=== PATIENT | female | born 1950 | race Caucasian/White ===

== ENCOUNTER 2021-11-25 10:38 | Emergency (ER) | payer MEDICARE, MEDICAID, SELFPAY ==
--- NOTE | ~2021-11-25 | CT_ITS ---
EXAMINATION: CT abdomen pelvis w con DATE: 11/25/2021 12:03 INDICATION: Right lower quadrant abdominal pain. TECHNIQUE: Computed tomography (CT) of the abdomen and pelvis was performed with 100 mL Omnipaque-350 intravenous contrast. Automated exposure control and iterative reconstruction technique were employe d. The dose-length product was 285.57 mGy-cm. COMPARISON: None FINDINGS: Mild bronchiectasis and mild dependent atelectasis in the bilateral lower lobes. Heart size is normal . Atherosclerotic coronary artery calcific location. No pericardial or pleural effusion. Small slidin g-type hiatal hernia. Mild dilation of the common bile duct which measures up to 10 mm in diameter bu t without intrahepatic biliary ductal dilation likely related to prior cholecystectomy with surgical clips at the gallbladder fossa. There are couple gas and fluid-filled duodenal diverticula along the head of the pancreas, the first measuring 2.9 x 3.3 cm resulting from the second portion of the duode num and a second measuring 2.8 x 1.7 cm arising from the third portion of the duodenum. Pancreas, spl een and bilateral adrenal glands are normal. 9.2 cm cyst arising from the lower pole of the right kid nico. There is urothelial enhancement along the bilateral ureters and urinary tract infections. Bladde r is normal. Small fat-containing right inguinal hernia. There is moderate colonic diverticulosis wit h a sigmoid predominance. There is no adjacent inflammatory change to suggest diverticulitis. No hazel wel obstruction. The appendix is not visualized. No pericecal inflammatory change to suggest acute ap pendicitis. Small fat-containing umbilical hernia. The uterus is not identified and has likely been s urgically resected. No free intraperitoneal gas or fluid. No pathologically enlarged abdominal or pel wanda lymphadenopathy. There is calcified atherosclerosis of the aorta and bilateral iliac arteries. Th oracolumbar dextroscoliosis with severe spondylosis. IMPRESSION: 1. Urothelial enhancement at the bilateral renal pelvises sees and ureters resulting concern for asce nding urinary tract infection. Correlate with urinalysis. 2. Small fat-containing umbilical and right inguinal hernias. 3. Moderate sigmoid diverticulosis. Reviewed, dictated and finalized at location [facility]. IMPRESSION: 1. Urothelial enhancement at the bilateral renal pelvises sees and ureters resu lting concern for ascending urinary tract infection. Correlate with urinalysis. 2. Small fat-containing umbilical and right inguinal hernias. 3. Moderate sigmoid diverticulosis.
[2021-11-25 10:42] VITALS: BP 149/67; PULSE 91; RESP 16; TEMP 36.7; O2SAT 99
[2021-11-25 10:57] LABS: Basophils Percent Auto 0.3 % (0.2-1.2); Eosinophils Absolute Auto 0.1 K/mm3 (0-0.3); Eosinophils Percent Auto 1.3 % (0-4.4); Hematocrit 43.6 % (37.0-47.0); Hemoglobin 14.3 g/dL (12.0-15.0); Immature Granulocyte Absolute 0.02 K/mm3 (0.00-0.031); Immature Granulocyte Percent A 0.3 % (0-0.5); Lymphocytes Absolute Auto 1.37 K/mm3 (0.9-3.2); Lymphocytes Percent Auto 19.6 % (18.3-44.2); Mean Corpuscular HGB Conc 32.8 g/dl (32-36); Mean Corpuscular Hemoglobin 30.2 pg (26-34); Mean Platelet Volume 10.6 fl (7.4-10.4); Monocytes Absolute Auto 0.5 K/mm3 (0.1-0.6); Monocytes Percent Auto 7.6 % (2.6-8.5); Neutrophils Percent Auto 70.9 % (45.5-73.1); Platelet Count Result 200 k/mm3 (150-375); Red Blood Count 4.74 M/mm3 (4.2-5.4)
[2021-11-25 11:08] LABS: Alanine Aminotransferase 15 U/L (4-35); Albumin Level 4.6 g/dL (3.5-5.1); Alkaline Phosphatase 95 U/L (38-126); Anion Gap 8 mmol/L (8-16); Aspartate Amino Transferase 24 U/L (14-36); Bilirubin,Total 0.9 mg/dL (0.2-1.3); Blood Urea Nitrogen 20 mg/dL (7-17); Calcium 9.4 mg/dL (8.4-10.2); Carbon Dioxide 28 mmol/L (22-30); Chloride 102 mmol/L (98-107); Estimated CRCL calculation 33 ml/min; Estimated Glomerular Filt Rate 45; Glucose 139 mg/dL (65-110); Lipase 147 U/L (23-300); Potassium 3.8 mmol/L (3.4-5.0); Sodium 138 mmol/L (137-145)
[2021-11-25 11:16] LABS: Add Urine Microscopic? YES; Appearance Urine Cloudy (Clear); Bacteria Urine Trace /hpf; Bilirubin Urine Negative (Negative); Blood Urine 3+ (Negative); Color Urine Yellow (Yellow); Glucose Urine UA 3+ mg/dL (Negative); Ketones Urine Trace mg/dL (Negative); Leukocyte Esterase Ur 3+ LEU/UL (Negative); Mucus Urine Rare /lpf; Nitrate Urine Negative (Negative); Protein Urine 2+ mg/dL (Negative); RBC Urine >75 /hpf (0-2); Specific Grav Ur 1.021 (1.001-1.035); Squamous Epithelial Cell Urine Rare /hpf (Few); Urobilinogen Urine Negative mg/dL (<2.0); WBC Urine >75 /hpf
[2021-11-25 11:22] VITALS: BP 147/60; PULSE 84; RESP 18
[2021-11-25] MEDS: MORPHINE SULFATE (*CRX) 4 MG/ML INJ IV PUSH (12:08)
--- NOTE | 2021-11-25 12:47 | ED.FEMALEGU ---
HPI - Female Genitourinary General Chief complaint: Urogenital-Female Stated complaint: rectal bleeding Time Seen by Provider: 11/25/21 11:12 History of Present Illness HPI Narrative: Patient is a 71-year-old female who presents ER with urinary issues. Patient reports she had some more cramping in her abdomen yesterday and then had bright red urine. Had the appearance made her juice. Since then she has been having urinary frequency and dysuria. She has some cramping pain that goes into her back. No fevers or chills or sweats. No nausea or vomiting. Related Data Allergies Allergy/AdvReac Type Severity Reaction Status Date / Time acetaminophen [From [place]] Allergy Anaphylaxis Verified 11/25/21 12:10 hydrocodone [From [place]] Allergy Anaphylaxis Verified 11/25/21 12:10 Review of Systems Review of Systems: All systems reviewed & are unremarkable except as noted in HPI and below Constitutional: Constitutional: Denies chills and Denies fatigue Cardiovascular: Cardiovascular: Denies chest pain, Denies rapid heart rate and Denies radiating jaw, neck or arm pain Respiratory: Respiratory: Denies cough and Denies dyspnea Gastrointestinal: Gastrointestinal: Reports abdominal pain, Denies diarrhea, Denies nausea and Denies vomiting Genitourinary: Genitourinary: Denies abnormal vaginal bleeding, Reports hematuria, Reports nocturia, Reports dysuria, Reports flank pain and Denies urinary incontinence Neurologic: Denies headache(s), Denies focal weakness and Denies numbness PMFSH Past Medical History Medical History (Updated 11/25/21 @ 12:54 by Baldo Carednas MD) Depression Hyperlipidemia Surgical History Surgical History (Updated 11/25/21 @ 12:49 by Baldo Cardenas MD) History of hysterectomy Social History Social History (Updated 11/25/21 @ 12:49 by Baldo Cardenas MD) Smoking status: Never smoker Exam Narrative: GENERAL: Well-appearing, well-nourished, and in no acute distress. HEAD: Normocephalic, atraumatic. ENT: Mucous membranes moist. CHEST: Clear to auscultation. No respiratory distress. HEART: Regular rate and rhythm. Normal peripheral pulses. ABDOMEN: Soft, tender palpation right lower quadrant with guarding, nondistended. Bilateral CVA tenderness. EXTREMITIES: Normal range of motion. No edema. SKIN: Warm, dry, no rash. NEURO: Alert and oriented x3. PSYCH: Normal mood and affect. Course Course Emergency Course: Patient resting comfortably. Informed of results. Given ceftriaxone for infection. Discharge home with antibiotics and pain/nausea control. Discussed return precautions and patient verbalized understanding. Vital Signs Vital signs: Vital Signs Temperature 98.0 F 11/25/21 10:42 Pulse Rate 91 11/25/21 10:42 Respiratory Rate 16 11/25/21 10:42 Blood Pressure 149/67 H 11/25/21 10:42 Pulse Oximetry 99 11/25/21 10:42 Temperature 98.0 F 11/25/21 10:42 Pulse Rate 84 11/25/21 11:22 Respiratory Rate 18 11/25/21 11:22 Blood Pressure 147/60 H 11/25/21 11:22 Pulse Oximetry 99 11/25/21 10:42 MDM - Female Genitourinary Lab Data Result diagrams: 11/25/21 10:51 11/25/21 10:51 Labs: Lab Results 11/25/21 11/25/21 11/25/21 Range/Units 10:51 10:51 10:59 WBC 7.0 (4.5-10.0) K/mm3 RBC 4.74 (4.2-5.4) M/mm3 Hgb 14.3 (12.0-15.0) g/dL Hct 43.6 (37.0-47.0) % MCV 92.0 (80-100) fl MCH 30.2 (26-34) pg MCHC 32.8 (32-36) g/dl RDW 13.0 (11.5-14.5) % Plt Count 200 (150-375) k/mm3 MPV 10.6 H (7.4-10.4) fl Immature Gran % (Auto) 0.3 (0-0.5) % Neut % (Auto) 70.9 (45.5-73.1) % Lymph % (Auto) 19.6 (18.3-44.2) % Burke % (Auto) 7.6 (2.6-8.5) % Eos % (Auto) 1.3 (0-4.4) % Baso % (Auto) 0.3 (0.2-1.2) % Lymph # (Auto) 1.37 (0.9-3.2) K/mm3 Burke # (Auto) 0.5 (0.1-0.6) K/mm3 Eos # (Auto) 0.1 (0-0.3) K/mm3 Baso # (Auto) 0.0 (0.0-0.1) K/mm3 Abs Imm
[2021-11-25 13:29] VITALS: BP 115/63; PULSE 76; RESP 16; O2SAT 98
== END 2021-11-25 13:34 | disposition home or self-care (01) ==
PROVIDERS: Emergency Provider Emergency Medicine
DX: N12 Tubulo-interstitial nephritis, not specified as acute or chronic (principal); E78.5 Hyperlipidemia, unspecified; K57.90 Diverticulosis of intestine, part unspecified, without perforation or abscess without bleeding
CPT/HCPCS: 36415; 51701; 74177; 80053; 81001; 83690; 85025; 87077; 87086; 87088; 87186; 96365; 96375; 99284; J0696; J2270; Q9967

== ENCOUNTER 2021-11-29 18:02 | Emergency (ER) | payer MEDICARE, MEDICAID, SELFPAY ==
--- NOTE | ~2021-11-29 | CT_ITS ---
EXAMINATION: CT brain wo con DATE: 11/29/2021 20:06 INDICATION: Confusion. Urinary tract infection. TECHNIQUE: Computed tomography (CT) of the head was performed without intravenous contrast. The mA wa s adjusted according to patient size. Iterative reconstruction technique was employed. Exam dose: 60 5.33 mGy-cm total exam DLP. COMPARISON: None FINDINGS: Bilateral carotid siphon internal carotid artery calcifications, vertebral and basilar ziyad ry calcification. Is nonspecific diminished attenuation cerebral white matter, likely due to chronic small vessel ischemic changes. No intracranial mass lesion or hemorrhage or cerebrovascular accident is detected. No midline shift o r mass effect. Normal ventricular size. No subdural or epidural hematoma. No orbital mass lesion. There is patchy soft tissue thickening of some ethmoid air cells bilaterally. The included paranasal sinuses are otherwise unremarkable. Normal development and aeration of the mastoid air cells. No fracture or bone destruction of the cranial vault. IMPRESSION: Cerebral atherosclerosis and chronic small vessel ischemic changes of the cerebral white matter No acute intracranial finding Reviewed, dictated and finalized at [facility]. Reviewed, dictated and finalized at location [facility].
--- NOTE | ~2021-11-29 | CT_ITS ---
EXAMINATION: CT abdomen pelvis wo con DATE: 11/29/2021 20:06 INDICATION: Increasing abdominal pain. Urinary tract infection. Hematuria. TECHNIQUE: Computed tomography (CT) of the abdomen and pelvis was performed without intravenous contr ast. Automated exposure control and iterative reconstruction technique were employed. Exam dose: 284 .89 mGy-cm total exam DLP. COMPARISON: 11/25/2021 CT abdomen pelvis with IV contrast material FINDINGS: The lung bases are clear. Normal heart size. Coronary artery calcifications. No pericardial or pleural effusion. Small sliding hiatal hernia. Status post cholecystectomy. No hepatic, splenic, pancreatic, adrenal or left renal space occupying m ass lesion. There is a 9 cm cyst of the right kidney. No urinary tract calculus or hydroureteronephrosis is detected. The urinary bladder is relatively madelyn cuated, unremarkable. Status post hysterectomy. Diverticulosis of the sigmoid colon; no CT evidence of diverticulitis. No bowel obstruction, bowel wa ll thickening, pneumatosis or intraperitoneal free air. There is extensive calcification of the abdominal aorta but no aneurysm. There is calcification of ao rtic branches including iliac arteries as well as bilateral femoral artery calcification. No intraperitoneal or retroperitoneal or pelvic mass lesion or adenopathy or ascites. Small fat-containing umbilical hernia. Fat-containing right inguinal hernia. Osteopenia. Degenerative changes of the thoracic and lumbar spine, including severe degenerative disc disease and associated mild retrolisthesis at L2-3, moderate degenerative disc disease and minimal r etrolisthesis at L4-5. IMPRESSION: Status post cholecystectomy Status post hysterectomy Diverticulosis of sigmoid colon; no evidence of diverticulitis Small sliding hiatal hernia Reviewed, dictated and finalized at [facility]. Reviewed, dictated and finalized at [facility].
[2021-11-29 18:24] VITALS: BP 118/63; PULSE 73; RESP 18; TEMP 36.6; O2SAT 97
--- NOTE | 2021-11-29 19:56 | ED.GENADULT ---
HPI - General Adult General Chief complaint: Unspecified Stated complaint: dizzy, confused, dx with UTI yesterday Time Seen by Provider: 11/29/21 19:43 Source: patient, RN notes reviewed and old records reviewed Limitations: no limitations History of Present Illness HPI narrative: 71-year-old female with a current UTI and type 2 diabetes presented to the emergency department for evaluation of increased fatigue. Patient states that she was recently diagnosed with a urinary tract infection and was started on antibiotics. EMR reflects patient was started on Cipro. Patient states she has been taking this medication as directed. Patient initial symptoms began 11/24 which consisted of suprapubic abdominal pain and hematuria. Patient states that since her initial visit that the hematuria had begun to improve. Patient states over the last 2 days she has had increasing fatigue. Patient states she was sleeping excessively today and felt like her head was in a fog. Patient denies any associated chest pain or shortness of breath. While patient states she is dizzy she denies any falls or injuries. Patient denies any focal numbness or weakness. Related Data Allergies Allergy/AdvReac Type Severity Reaction Status Date / Time acetaminophen [From [place]] Allergy Anaphylaxis Verified 11/29/21 22:02 hydrocodone [From [place]] Allergy Anaphylaxis Verified 11/29/21 22:02 Review of Systems Review of Systems: CONSTITUTIONAL: Generalized weakness and fatigue EYES: Denies visual changes, redness, or discharge. ENT: Denies rhinorrhea, congestion, sore throat, or otalgia. CARDIOVASCULAR: Denies chest pain, palpitations, or edema. RESPIRATORY: Denies cough or dyspnea. GASTROINTESTINAL: Suprapubic abdominal pain GENITOURINARY: Denies dysuria or hematuria. SKIN: Denies rash or itching. MUSCULOSKELETAL: Denies back pain, joint pain, or myalgia. NEUROLOGIC: Denies headache, numbness, or weakness. PMFSH Past Medical History Medical History (Updated 11/29/21 @ 22:58 by Zack Gonsalves MD) Depression Hyperlipidemia Surgical History Surgical History (Updated 11/25/21 @ 12:49 by Baldo Cardenas MD) History of hysterectomy Social History Social History (Updated 11/25/21 @ 12:49 by Baldo Cardenas MD) Smoking status: Never smoker Exam Narrative: APPEARANCE: Well appearing, no pain, no distress, well-nourished. HEAD: normocephalic, atraumatic. EYES: PERRLA/EOMI, conjunctivae clear. NOSE: Normal no drainage NECK: Supple. No adenopathy, no masses. RESPIRATORY: Airway patent, respirations nonlabored. Clear to auscultation bilaterally, no rales, rhonchi, wheezing. CARDIOVASCULAR: Regular rate and rhythm without murmurs rubs or gallops. ABDOMINAL: Soft, suprapubic tenderness to palpation MUSCULOSKELETAL: Moves all extremities. Strength/ROM intact, No edema, No calf tenderness. NEURO: Alert. Cranial nerves II through XII intact. Grossly intact SKIN: Warm, dry. Normal Color PSYCHIATRIC: Normal affect/mood. Course Course Emergency Course: Urine culture from 11/25 does show susceptibility to the Cipro that she was started on. CT head was ordered due to the altered mental status. CT abdomen pelvis without contrast was ordered to rule out any possible underlying stone. Patient denies any prior history of ureteral calculi. Patient had a negative head CT. UA is improved. Patient does not have a leukocytosis. Creatinine 1.3 is similar to baseline. Patient states she does feel improved with treatment. I discussed admission for the patient and she states she prefers to be discharged back to home. Patient states she does has family members who are able to take care of her. Vital Signs Vital signs: Vital Signs Temperature 97.9 F 11/29/21 18:24 Pulse Rate 73 11/29/21 18:24 Respiratory Rate 18 11/29/21 18:24 Blood Pressure 118/63 11/29/21 18:24 Pulse Oximetry 97 11/29/21 18:24 Temperature 97.9 F 11/29/21 18:24 Pulse Rate
[2021-11-29 20:27] LABS: Basophils Percent Auto 0.4 % (0.2-1.2); Eosinophils Absolute Auto 0.1 K/mm3 (0-0.3); Eosinophils Percent Auto 2.7 % (0-4.4); Hematocrit 39.5 % (37.0-47.0); Hemoglobin 13.1 g/dL (12.0-15.0); Immature Granulocyte Absolute 0.03 K/mm3 (0.00-0.031); Immature Granulocyte Percent A 0.6 % (0-0.5); Lymphocytes Percent Auto 25.4 % (18.3-44.2); Mean Corpuscular HGB Conc 33.2 g/dl (32-36); Mean Corpuscular Hemoglobin 30.3 pg (26-34); Mean Corpuscular Volume 91.2 fl (80-100); Mean Platelet Volume 10.2 fl (7.4-10.4); Monocytes Absolute Auto 0.4 K/mm3 (0.1-0.6); Monocytes Percent Auto 7.8 % (2.6-8.5); Neutrophils Percent Auto 63.1 % (45.5-73.1); Platelet Count Result 238 k/mm3 (150-375); Red Blood Count 4.33 M/mm3 (4.2-5.4); White Blood Count 4.7 K/mm3 (4.5-10.0)
[2021-11-29 20:40] LABS: Alanine Aminotransferase 16 U/L (4-35); Albumin Level 4.6 g/dL (3.5-5.1); Alkaline Phosphatase 90 U/L (38-126); Anion Gap 8 mmol/L (8-16); Aspartate Amino Transferase 24 U/L (14-36); Bilirubin,Total 0.4 mg/dL (0.2-1.3); Blood Urea Nitrogen 21 mg/dL (7-17); Calcium 9.3 mg/dL (8.4-10.2); Carbon Dioxide 24 mmol/L (22-30); Chloride 107 mmol/L (98-107); Estimated CRCL calculation 30 ml/min; Estimated Glomerular Filt Rate 41; Glucose 174 mg/dL (65-110); Potassium 4.1 mmol/L (3.4-5.0); Sodium 139 mmol/L (137-145)
[2021-11-29 20:41] LABS: Lactic Acid Reflex 1.1 mmol/L (0.7-2.1)
[2021-11-29 22:00] VITALS: BP 116/76; PULSE 67; RESP 20; O2SAT 96
[2021-11-29 22:53] LABS: Appearance Urine Clear (Clear); Bilirubin Urine Negative (Negative); Blood Urine Trace-lysed (Negative); Color Urine Yellow (Yellow); Glucose Urine UA 3+ mg/dL (Negative); Ketones Urine Negative (Negative); Leukocyte Esterase Ur Negative LEU/UL (Negative); Nitrate Urine Negative (Negative); Protein Urine 1+ mg/dL (Negative); Urobilinogen Urine 0.2 mg/dL (<2.0)
[2021-11-29 22:57] LABS: Mucus Urine Rare /lpf; Squamous Epithelial Cell Urine Occasional /hpf (Few)
[2021-11-29 22:59] LABS: Add Urine Microscopic? YES
[2021-11-29] MEDS: SODIUM CHLORIDE 0.9% IV 500 ML 999 ML IV CONT (23:18)
[2021-11-30 01:35] VITALS: BP 114/71; PULSE 67; RESP 14; O2SAT 94
== END 2021-11-30 01:36 | disposition home or self-care (01) ==
PROVIDERS: Emergency Provider Emergency Medicine; PCP Physician Assistant
DX: R53.1 Weakness (principal); N39.0 Urinary tract infection, site not specified; E11.9 Type 2 diabetes mellitus without complications; E78.5 Hyperlipidemia, unspecified; K57.30 Diverticulosis of large intestine without perforation or abscess without bleeding; K44.9 Diaphragmatic hernia without obstruction or gangrene; I67.2 Cerebral atherosclerosis
CPT/HCPCS: 36415; 70450; 74176; 80053; 81001; 83605; 85025; 87040; 87086; 87147; 87181; 87186; 96360; 99284; J7040

== ENCOUNTER 2022-11-10 17:19 | Emergency (ER) | payer MEDICARE, MEDICAID, SELFPAY ==
--- NOTE | ~2022-11-10 | XR_ITS ---
EXAMINATION: XR chest 2V DATE: 11/10/2022 18:15 INDICATION: Chest pain, shortness of breath and weakness TECHNIQUE: PA and lateral views of the chest were obtained. COMPARISON: None FINDINGS: The lungs are clear with no focal airspace opacities, pulmonary edema, pleural effusion or pneumothor ax. The cardiomediastinal silhouette is normal. Cholecystectomy clips in right upper quadrant. Modera te to severe thoracic spondylosis. IMPRESSION: 1. No acute cardiopulmonary disease. Reviewed, dictated and finalized at location [facility]. APPLICATIONS COORDINATOR
--- NOTE | ~2022-11-10 | CT_ITS ---
EXAMINATION: CT abdomen pelvis w con DATE: 11/10/2022 20:26 INDICATION: Abdominal pain TECHNIQUE: Computed tomography (CT) of the abdomen and pelvis was performed with 100 mL Omnipaque-350 intravenous contrast. Automated exposure control and iterative reconstruction technique were employe d. The dose-length product was 278.95 mGy-cm. COMPARISON: 11/29/2021 FINDINGS: 1 lungs are clear. Heart size is normal. Atherosclerotic coronary artery calcific lesions. No pericar dial or pleural effusion. Small sliding-type hiatal hernia. Unchanged mild extra and minimal intrahep atic biliary ductal dilation likely related to prior cholecystectomy with surgical clips at the gallb ladder fossa. The liver is otherwise unremarkable. Spleen, pancreas, bilateral adrenal glands and lef t kidney are normal. 9.1 cm cyst at the lower pole of the right kidney. There is edematous wall thick ening in the sigmoid colon where there are also several scattered diverticula but without surrounding inflammatory stranding to suggest diverticulitis and would favor a mild distal colitis. No bowel obs truction. The appendix is not visualized. No pericecal inflammatory change to suggest acute appendici tis. Small fat-containing umbilical and right inguinal hernias. Bladder is normal. The uterus is not identified and has likely been surgically resected. No free intraperitoneal gas or fluid. No patholog ically enlarged abdominal or pelvic lymphadenopathy. There is calcified atherosclerosis of the aorta and many of the other arteries which does not appear hemodynamically significant aside from potential ly hemodynamically significant stenosis at the proximal right renal artery. Thoracolumbar dextroscoli osis with severe spondylosis. IMPRESSION: 1. Multiple diverticula and wall thickening throughout the sigmoid colon without focal surrounding in flammatory stranding and would favor an infectious or inflammatory colitis over diverticulitis. 2. Small sliding-type hiatal hernia. 3. Potentially hemodynamically significant stenosis at the proximal right renal artery. 4. Small fat-containing umbilical and right inguinal hernias. Reviewed, dictated and finalized at location [facility]. K CARRIER IMPRESSION: 1. Multiple diverticula and wall thickening throughout the sigmoid colon withou t focal surrounding inflammatory stranding and would favor an infectious or inf lammatory colitis over diverticulitis. 2. Small sliding-type hiatal hernia. 3. Potentially hemodynamically significant stenosis at the proximal right renal artery. 4. Small fat-containing umbilical and right inguinal hernias.
[2022-11-10 17:23] VITALS: BP 148/63; PULSE 94; RESP 18; TEMP 36.4; O2SAT 100
--- NOTE | 2022-11-10 17:28 | ECG_ITS ---
Measurements Intervals [place] Rate: 79 P: 72 LA: 161 QRS: -6 QRSD: 90 T: 66 QT: 356 QTc: 409 Interpretive Statements SINUS RHYTHM MINIMAL Q WAVES- INFERIOR LEADS BASELINE ARTIFACT- V4 BORDERLINE ECG NO PREVIOUS ECG AVAILABLE FOR COMPARISON Electronically Signed On 11-10-2022 21:02:22 [facility]EWARD/[facility]ARD[employer] N[employer] by Keith Pino D.O.
[2022-11-10 18:09] LABS: Basophils Percent Auto 0.5 % (0.2-1.2); Eosinophils Absolute Auto 0.1 K/mm3 (0-0.3); Eosinophils Percent Auto 1.4 % (0-4.4); Hematocrit 39.5 % (37.0-47.0); Hemoglobin 13.4 g/dL (12.0-15.0); Immature Granulocyte Absolute 0.01 K/mm3 (0.00-0.031); Immature Granulocyte Percent A 0.2 % (0-0.5); Immature Platelet Fraction Pct 5.6 % (0.9-11.2); Lymphocytes Absolute Auto 1.08 K/mm3 (0.9-3.2); Lymphocytes Percent Auto 24.8 % (18.3-44.2); Mean Corpuscular HGB Conc 33.9 g/dl (32-36); Mean Corpuscular Hemoglobin 30.7 pg (26-34); Mean Corpuscular Volume 90.4 fl (80-100); Mean Platelet Volume 10.9 fl (7.4-10.4); Monocytes Absolute Auto 0.4 K/mm3 (0.1-0.6); Monocytes Percent Auto 8.7 % (2.6-8.5); Neutrophils Absolute Auto 2.8 K/mm3 (1.3-6.7); Neutrophils Percent Auto 64.4 % (45.5-73.1); Platelet Count Result 152 k/mm3 (150-375); Red Blood Count 4.37 M/mm3 (4.2-5.4); Red Cell Distribution Width 13.3 % (11.5-14.5); White Blood Count 4.4 K/mm3 (4.5-10.0)
[2022-11-10 18:21] LABS: Alanine Aminotransferase 16 U/L (6-35); Albumin Level 4.6 g/dL (3.5-5.1); Alkaline Phosphatase 82 U/L (38-126); Anion Gap 7 mmol/L (8-16); Aspartate Amino Transferase 22 U/L (14-36); Bilirubin,Total 0.7 mg/dL (0.2-1.3); Blood Urea Nitrogen 20 mg/dL (7-17); Calcium 9.2 mg/dL (8.4-10.2); Carbon Dioxide 28 mmol/L (22-30); Chloride 103 mmol/L (98-107); Estimated CRCL calculation 35 ml/min; Estimated Glomerular Filt Rate 49; Glucose 198 mg/dL (65-110); Potassium 4.2 mmol/L (3.4-5.0); Sodium 138 mmol/L (137-145)
[2022-11-10 18:53] VITALS: BP 144/64; PULSE 82; RESP 18; O2SAT 100
--- NOTE | 2022-11-10 19:24 | PC.NURSE ---
Assumed pt care from Crystal Wei RN
--- NOTE | 2022-11-10 19:50 | ED.GENADULT ---
HPI - General Adult General Chief complaint: Unspecified Stated complaint: mental health complaint Time Seen by Provider: 11/10/22 19:16 History of Present Illness HPI narrative: Patient is a 72-year-old female who presents to the emergency department with chief complaint of depression. Patient reports that she has had a long running history of depression and she has been on medications written by her primary care provider. The patient reports that approximately 2 days ago her medications stopped working. The patient states she has been more depressed been more withdrawn incidentally the patient also reports that she has been feeling rundown also reports that she has had some generalized abdominal pain for several months. Patient reports that she has not had any significant work-up of her abdominal pain. Patient states she talked her primary care provider who recommended that she come to the emergency department for her mental health complaints. The patient denies suicidal or homicidal ideation Related Data Allergies Allergy/AdvReac Type Severity Reaction Status Date / Time acetaminophen [From [place]] Allergy Anaphylaxis Verified 11/29/21 22:02 hydrocodone [From [place]] Allergy Anaphylaxis Verified 11/29/21 22:02 Review of Systems Review of Systems: A 10 system review of systems was completed on the patient and is negative except for what is stated in the HPI. Nursing and ancillary documentation was reviewed. PMFSH Past Medical History Medical History Depression Hyperlipidemia Surgical History Surgical History History of hysterectomy Social History Social History Smoking status: Never smoker Exam Narrative: GENERAL: Well-appearing, well-nourished, and in no acute distress. HEAD: Normocephalic, atraumatic. EYES: PERRLA and EOMI. ENT: Nares clear, no rhinorrhea or epistaxis. Mucous membranes moist. NECK: Supple. CHEST: Clear to auscultation. No respiratory distress. HEART: Regular rate and rhythm. No murmur heard. Normal peripheral pulses. ABDOMEN: Soft, diffuse tenderness to palpation, nondistended, normal active bowel sounds. EXTREMITIES: Normal range of motion. No edema. SKIN: Warm, dry, no rash. NEURO: No focal deficits. Alert and oriented x3. PSYCH: Depressed mood and affect Course Vital Signs Vital signs: Vital Signs Temperature 36.4 C 11/10/22 17:23 Pulse Rate 94 11/10/22 17:23 Respiratory Rate 18 11/10/22 17:23 Blood Pressure 148/63 H 11/10/22 17:23 Pulse Oximetry 100 11/10/22 17:23 Oxygen Delivery Room Air 11/10/22 17:23 Temperature 36.4 C 11/10/22 17:23 Pulse Rate 82 11/10/22 18:53 Respiratory Rate 18 11/10/22 18:53 Blood Pressure 144/64 H 11/10/22 18:53 Pulse Oximetry 100 11/10/22 18:53 Oxygen Delivery Room Air 11/10/22 18:53 Medical Decision Making MDM Narrative Medical decision making narrative: Differential diagnosis includes intra-abdominal infection, UTI, depression, grief reaction, The patient underwent laboratory studies that were within normal limits with the exception of having a positive urinalysis for UTI. CT scan of the abdomen pelvis showed no acute abnormalities but did show some renal artery narrowing that could cause issues with renal artery stenosis. The patient was medically cleared for psychiatric evaluation referral transfer and admission. Patient was seen by crisis and evaluated for need for emergent hospitalization the patient was given resources for grief and bereavement as well as depression. Patient was able to contract for safety and the patient will be discharged home. Vital Signs Vital Signs: Vital Signs Temperature 36.4 C 11/10/22 17:23 Pulse Rate 94 11/10/22 17:23 Respiratory Rate 18 11/10/22 17:23 Blood Pressure
[2022-11-10] MEDS: SODIUM CHLORIDE 0.9% IV 1,000 ML 999 ML IV CONT (20:10)
[2022-11-10 20:37] LABS: Influenza A QL RT-PCR Negative (Negative); Influenza B QL RT-PCR Negative (Negative); SARS-CoV-2 RNA PCR Negative
[2022-11-10 20:51] LABS: Appearance Urine Clear (Clear); Bacteria Urine None Seen /hpf; Bilirubin Urine Negative (Negative); Blood Urine 1+ (Negative); Color Urine Yellow (Yellow); Glucose Urine UA Negative (Negative); Ketones Urine Trace mg/dL (Negative); Leukocyte Esterase Ur 2+ LEU/UL (Negative); Nitrate Urine Negative (Negative); Protein Urine Negative (Negative); Specific Grav Ur 1.024 (1.001-1.035); Squamous Epithelial Cell Urine Occasional /hpf (Few); WBC Urine 21-50 /hpf
[2022-11-10 20:54] LABS: Lipase 117 U/L (23-300)
[2022-11-10 20:57] LABS: Add Urine Microscopic? YES
[2022-11-10 20:58] LABS: Acetaminophen < 10 ug/mL (10-30); Ethanol < 10 mg/dL (<10); Salicylate < 1.0 mg/dL (2-20)
[2022-11-10 21:09] LABS: Amphetamine Screen Urine Negative (Negative); Barbiturate Screen Urine Negative (Negative); Benzodiazepines Screen Urine Negative (Negative); Cannabinoid Screen Urine Negative (Negative); Cocaine Screen Urine Negative (Negative); Methadone Screen Urine Negative (Negative); Opiate Screen Urine Negative (Negative); Phencyclidine Screen Urine Negative (Negative)
[2022-11-11 00:25] VITALS: BP 110/87; PULSE 86; RESP 16; O2SAT 96
[2022-11-11 00:26] VITALS: BP 110/87; PULSE 86; RESP 16; O2SAT 97
[2022-11-11 04:12] LABS: Hyaline Casts Urine Present /lpf
== END 2022-11-11 00:30 | disposition home or self-care (01) ==
PROVIDERS: Emergency Medicine; Emergency Provider Emergency Medicine; PCP Physician Assistant
DX: F32.A Depression, unspecified (principal); F43.21 Adjustment disorder with depressed mood; N39.0 Urinary tract infection, site not specified; K52.9 Noninfective gastroenteritis and colitis, unspecified; Z20.822 Contact with and (suspected) exposure to COVID-19; E78.5 Hyperlipidemia, unspecified; Z79.899 Other long term (current) drug therapy
CPT/HCPCS: 36415; 71046; 74177; 80053; 80307; 81001; 83690; 84443; 85025; 85055; 87086; 87636; 93005; 96360; 99284; J7030; Q9967